=== PATIENT | female | born 1965 | race Caucasian/White ===

== ENCOUNTER 2023-08-31 06:58 | Day surgery (SDC) | payer OTHER ==
[~2023-08-31] VITALS: Ht 165.1 cm; Wt 74.8 kg
[2023-08-31] MEDS ORDERED: fentaNYL citrate 0.05 MG/ML VIAL ONE (07:37)
[2023-08-31] MEDS ORDERED: MIDAZOLAM 2 MG/2 ML VIAL ONE (07:37)
[2023-09-01] MEDS ORDERED: MIDAZOLAM 2 MG/2 ML VIAL IVP ONE (15:15)
== END 2023-08-31 09:45 | disposition home or self-care (01) ==
LOC: MOR 06:58 → MMU 07:01 → MOR 09:45
PROVIDERS: ATTEND Internal Medicine Gastroenterology
DX: R10.13 Epigastric pain (principal); Z90.49 Acquired absence of other specified parts of digestive tract; Z79.899 Other long term (current) drug therapy
CPT/HCPCS: 43235; J2250; J3010